=== PATIENT | female | born 1940 | race Caucasian/White ===

== ENCOUNTER 2018-04-29 08:40 | Day surgery (SDC) | payer MEDICARE, OTHER ==
[2018-04-29] MEDS ORDERED: Lactated Ringers 1,000 ML IV SCH (08:45)
[2018-04-29] MEDS ORDERED: Sodium Chloride 0.9% 10 ML Syringe FLUSH PRN (08:45)
[2018-04-29] MEDS ORDERED: Propofol 200 MG/20 ML SDV IV ONE (10:10)
--- NOTE | 2018-04-29 11:02 | PCM.OPNOTE ---
- General Post-Op/Procedure Note Date of Surgery/Procedure: 04/29/18 Operative Procedure(s): egd with bx. c scope with bx Findings: gastritis with fundic polyps hiatal hernia esophagitis with irregular z line colon polyps ascending, descending and sigmoid colon melanosis coli Pre Op Diagnosis: sx gerd. hx of colon polyps Post-Op Diagnosis: gastritis with fundic polyps. hiatal hernia. esophagitis with irregular z line. colon polyps ascending, descending and sigmoid colon. melanosis coli Anesthesia Technique: MAC Primary Surgeon: Walter Dave Anesthesia Provider: Miguel Braun Pathology: gastritic with fundic polyps distal esophagus colon polyps ascending, descending and sigmoid colon Complications: None Condition: Good Free Text/Narrative:: see dictation
--- NOTE | 2018-04-29 17:16 | OR ---
DATE OF OPERATION: 04/29/2018 SURGEON: Walter Dave MD PROCEDURE PERFORMED: EGD and colonoscopy with biopsy. PREOPERATIVE DIAGNOSES: History of symptomatic GERD and history of adenomatous colon polyps. POSTOPERATIVE DIAGNOSES: Gastritis, hiatal hernia, esophagitis. She has a polyp of the ascending colon, a polyp of the descending colon, and a polyp of the sigmoid colon, as well as melanosis coli. INDICATIONS FOR PROCEDURE: This is a 77-year-old white female who presents with the above-mentioned complaints. She was due for a followup colonoscopy and she was also offered an EGD at the same time. DESCRIPTION OF PROCEDURE: After an excellent IV sedation was administered, bite block was inserted. Flexible endoscope was passed without difficulty down the patient's esophagus into the stomach. Stomach was insufflated. Scope was passed through the pylorus, second portion of the duodenum, and slowly withdrawn. The following findings were noted. Duodenum was unremarkable. Stomach demonstrated some diffuse gastritis as well as a hiatal hernia. Biopsies were taken in addition to the gastric biopsy, she also has several hyperplastic-appearing polyps and those were submitted in one container. A hiatal hernia was also noted. GE junction was approximately 35 cm with an irregular Z-line. Biopsies were taken of the irregular esophageal mucosa which also appeared to be inflamed. The remainder of the esophageal exam was unremarkable. Attention was then turned to the colon. Digital rectal exam was performed, no marked abnormality was noted. The flexible colonoscope was inserted and advanced without difficulty to the cecum. The prep was excellent. The following findings were noted. Ascending colon, polyp biopsied with cold biopsy forceps. Transverse colon, unremarkable. Descending colon, polyp biopsied with cold biopsy forceps. Sigmoid, polyp biopsied with cold biopsy forceps. Rectum and anus are unremarkable. It should also be noted that she had some diffuse melanosis coli. The patient tolerated procedure well, was taken to recovery in good condition. /[id number] /MODL
== END 2018-04-29 12:06 | disposition home or self-care (01) ==
LOC: FB.SDS 08:40
PROVIDERS: ATTEND Surgery
DX: Z12.11 Encounter for screening for malignant neoplasm of colon (principal); D12.2 Benign neoplasm of ascending colon; D12.4 Benign neoplasm of descending colon; K63.5 Polyp of colon; K63.89 Other specified diseases of intestine; K21.9 Gastro-esophageal reflux disease without esophagitis; K29.50 Unspecified chronic gastritis without bleeding; K31.7 Polyp of stomach and duodenum; K22.70 Barrett's esophagus without dysplasia; K44.9 Diaphragmatic hernia without obstruction or gangrene; E78.5 Hyperlipidemia, unspecified; Z88.1 Allergy status to other antibiotic agents; Z88.2 Allergy status to sulfonamides; Z91.013 Allergy to seafood; Z86.010 Personal history of colon polyps
CPT/HCPCS: 00812; 43239; 45380; 88305; 88313; 88342; J2704; J7120

== ENCOUNTER 2023-05-16 20:35 | Emergency (ER) | payer MEDICARE, OTHER | END 2023-05-16 21:23 | disposition home or self-care (01) | LOC: FB.ED 20:35 | DX: T63.441A Toxic effect of venom of bees, accidental (unintentional), initial encounter (principal); Z88.0 Allergy status to penicillin; Z91.013 Allergy to seafood; Z88.2 Allergy status to sulfonamides | CPT/HCPCS: 99282 ==